=== PATIENT | female | born 1965 | race Caucasian/White ===

== ENCOUNTER 2025-06-23 17:42 | Outpatient (CLI) | payer OTHER | END 2025-06-23 17:43 | disposition home or self-care (01) | LOC: BURRAD 17:42 | PROVIDERS: ATTEND Family Medicine | DX: M54.2 Cervicalgia (principal); M51.360 Other intervertebral disc degeneration, lumbar region with discogenic back pain only; M51.370 Other intervertebral disc degeneration, lumbosacral region with discogenic back pain only; M47.816 Spondylosis without myelopathy or radiculopathy, lumbar region; M47.812 Spondylosis without myelopathy or radiculopathy, cervical region; Z98.1 Arthrodesis status | CPT/HCPCS: 72040; 72072; 72100 ==